=== PATIENT | male | born 1950 | race Native Hawaiian/Other Pacific Islander ===

== ENCOUNTER 2017-07-22 09:03 | Emergency (ER) | payer MEDICARE ==
[~2017-07-22] VITALS: Ht 170.2 cm; Wt 60.0 kg
[2017-07-22 09:05] VITALS: BP 138/74; PULSE 96; RESP 16; TEMP 97.9; O2SAT 97
[2017-07-22] MEDS ORDERED: SYMB160A INH (09:22)
[2017-07-22] MEDS ORDERED: METF500T PO (09:23)
[2017-07-22] MEDS ORDERED: SIMV40TA PO (09:23)
[2017-07-22] MEDS ORDERED: CREON6 PO (09:23)
--- NOTE | 2017-07-22 10:00 | RADRPT ---
EXAM DATE/TIME: 07/22/2017 09:33 [facility] COMPARISON: No previous studies available for comparison. INDICATIONS : Pain, swelling, bruising left ankle entire ankle into foot. MEDICAL HISTORY : None. SURGICAL HISTORY : None. ENCOUNTER: Initial ACUITY: 2 days PAIN SCORE: 10/10 LOCATION: Left ankle. FINDINGS: Three view exam was performed of the left ankle. The bony structures are in normal alignment. No ev idence of fracture or dislocation. The ankle mortise is intact. Soft tissue swelling most notably o verlying the lateral ankle. No radiopaque foreign bodies are seen. Bony mineralization is normal. CONCLUSION: 1. Soft tissue swelling without subcutaneous emphysema or radiopaque foreign body. 2. No acute fracture or dislocation. Denny Sierra MD on July 22, 2017 at 9:57 Board Certified Radiologist. This report was verified electronically.
--- NOTE | 2017-07-22 10:04 | PD ---
HPI Chief Complaint: Injury Time Seen by Provider: 09:15 Travel History International Travel<30 days: No Contact w/Intl Traveler<30days: No Traveled to known affect area: No History of Present Illness HPI This 67-year-old man who presents to the emergency department when he left ankle pain. He reports that they moved into a house about a month ago. He is getting used to the stairs. He states he was coming off the stairs and he thought there was the landing but there was one more stair and he fell and rolled his left ankle. This happened last night. He said pain and swelling since then. Worse today. Able to bear weight some but has pain and swelling and discomfort in the left ankle. No other complaints. Otherwise, healthy. History Past Medical History Narrative Medical Asthma Pancreatic exocrine insufficiency Hyperlipidemia Past Surgical History Surgical History: No Previous Surgery Social History Alcohol Use: No Tobacco Use: No Allergies-Medications (Allergen,Severity, Reaction): Coded Allergies: No Known Allergies (Unverified , 07/22/17) Reported Meds & Prescriptions Reported Meds & Active Scripts Active Reported Metformin (Metformin HCl) 500 Mg Tab 500 Mg PO DAILY With a meal Simvastatin 40 Mg Tab 40 Mg PO HS Creon (Amylase/Lipase/Protease) 6,000-19,000-30,000 Units Cap 1 Cap PO DAILY Symbicort Inh (Budesonide/Formoterol Fumarate) 160-4.5 Mcg/Act Aero 1 Puff INH Q12HR Review of Systems Except as stated in HPI: all other systems reviewed are Neg Physical Exam Narrative GENERAL: Well-appearing 67-year-old man, no acute distress. SKIN: Warm and dry. CARDIOVASCULAR: Warm and well perfused. RESPIRATORY: Normal rate and effort. MUSCULOSKELETAL: Focused examination of the left lower toney reveals normal gross appearance of the distal leg. There is no pain or swelling. There is no pain with calf squeeze. Examination of the ankle shows some erythema redness and some bruising, especially about the lateral malleolus. There is tenderness over the lateral malleolus and the soft tissue surrounding the lateral malleolus. There is no obvious ligamentous instability. Good pulses. Distal foot intact. NEUROLOGICAL: Awake and alert. No gross deficits. Data Data Last Documented VS Vital Signs Date Time Temp Pulse Resp B/P (MAP) Pulse Ox O2 Delivery O2 Flow Rate FiO2 07/22/17 09:05 97.9 96 16 138/74 (95) 97 Room Air Orders Orders Ankle, Complete ([id number]) (07/22/17 ) MDM Medical Decision Making Medical Screen Exam Complete: Yes Emergency Medical Condition: Yes Interpretation(s) Personally reviewed x-ray images, negative for fracture. Differential Diagnosis Strain or sprain, fracture, contusion, other Narrative Course Medical decision-making new para 67-year-old male with left ankle inversion type injury, x-ray negative, able to bear weight, recommend supportive bracing. Outpatient follow-up. Diagnosis Primary Impression: Ankle sprain Referrals: Andrea Carranza MD 1 week Additional Instructions: Weight-bear as tolerated. Use brace as needed for comfort. Follow up with Dr. Carranza for further evaluation if not completely well and week. Return to the emergency department for any new or worsening symptoms. Med/Other Pt SpecificInfo: No Change to Meds Disposition: 01 DISCHARGE HOME Condition: Stable Oswaldo Pham MD Jul 22, 2017 10:04
== END 2017-07-22 10:22 | disposition home or self-care (01) ==
LOC: NEPD 09:03
DX: S93.402A Sprain of unspecified ligament of left ankle, initial encounter (principal); W10.9XXA Fall (on) (from) unspecified stairs and steps, initial encounter; Y92.009 Unspecified place in unspecified non-institutional (private) residence as the place of occurrence of the external cause
CPT/HCPCS: 73610; 99283

== ENCOUNTER 2018-01-25 08:53 | Emergency (ER) | payer MEDICARE, OTHER ==
[~2018-01-25] VITALS: Ht 170.2 cm; Wt 65.0 kg
[~2018-01-25 08:53] MED LIST: CREON6 PO; METF500T PO; SIMV40TA PO; SYMB160A INH
[2018-01-25 09:00] VITALS: BP 129/62; PULSE 75; RESP 16; TEMP 97.6; O2SAT 97
--- NOTE | 2018-01-25 10:46 | PD ---
HPI Chief Complaint: Back/ Neck Pain or Injury Time Seen by Provider: 09:50 Travel History International Travel<30 days: No Contact w/Intl Traveler<30days: No Traveled to known affect area: No History of Present Illness HPI 67-year-old male presents emergency department with atraumatic neck pain bilateral for the past 2 days. Denies any trauma patient states he overexerted his neck. He states he thought it was just a bad muscle strain but then when it did not get better he decided to come in and be seen. Denies any weight loss , he is a recovering alcoholic, no numbness and tingling in his extremities, no loss of urine, no urinary difficulty. States the pain is bilateral, right greater than left, no radiation, associated signs and symptoms in context as above. PFSH Past Medical History Asthma: Yes Social History Alcohol Use: No Tobacco Use: No Substance Use: No Allergies-Medications (Allergen,Severity, Reaction): Coded Allergies: No Known Allergies (Unverified , 07/22/17) Reported Meds & Prescriptions Reported Meds & Active Scripts Active Flexeril (Cyclobenzaprine HCl) 10 Mg Tab 10 Mg PO TID Reported Metformin (Metformin HCl) 500 Mg Tab 500 Mg PO DAILY With a meal Simvastatin 40 Mg Tab 40 Mg PO HS Creon (Amylase/Lipase/Protease) 6,000-19,000-30,000 Units Cap 1 Cap PO DAILY Symbicort Inh (Budesonide/Formoterol Fumarate) 160-4.5 Mcg/Act Aero 1 Puff INH Q12HR Review of Systems Except as stated in HPI: all other systems reviewed are Neg Physical Exam Narrative GENERAL: Well-nourished but thin, well-developed patient. In no obvious distress. Quite pleasant. SKIN: Focused skin assessment warm/dry. HEAD: Normocephalic. EYES: No scleral icterus. No injection or drainage. NECK: Supple, trachea midline. No JVD or lymphadenopathy. CARDIOVASCULAR: Regular rate and rhythm without murmurs, gallops, or rubs. RESPIRATORY: Breath sounds equal bilaterally. No accessory muscle use. GASTROINTESTINAL: Abdomen soft, non-tender, nondistended. MUSCULOSKELETAL: No cyanosis, or edema. There is no true midline tenderness, there is some tenderness over the right trapezius, there is no tenderness over the left trapezius. Patient has 5 out of 5 strength in all 4 extremities, no numbness and tingling peer BACK: Nontender without obvious deformity. No CVA tenderness. Data Data Last Documented VS Vital Signs Date Time Temp Pulse Resp B/P (MAP) Pulse Ox O2 Delivery O2 Flow Rate FiO2 01/25/18 09:00 97.6 75 16 129/62 (84) 97 Orders Orders Spine, Cervical - Ltd (Ap&Lat) (01/25/18 ) Ed Discharge Order (01/25/18 11:42) MDM Medical Decision Making Medical Screen Exam Complete: Yes Emergency Medical Condition: Yes Differential Diagnosis Neck strain, neck sprain, neck fracture highly unlikely, Narrative Course Patient room to the emergency department, his sign symptoms highly suggestive of neck strain, I think given his age he desires basic imaging to screen for any lytic lesions. A simple AP and lateral film was obtained and did not show any lytic lesions. The patient was reassured, discussed Intermedic management return to ED criteria Diagnosis Primary Impression: Neck strain Qualified Codes: S16.1XXA - Strain of muscle, fascia and tendon at neck level , initial encounter Med/Other Pt SpecificInfo: Prescription(s) given Scripts Cyclobenzaprine (Flexeril) 10 Mg Tab 10 MG PO TID for Muscle Spasm, #20 TAB 0 Refills Prov: Major Piña MD 01/25/18 Disposition: 01 DISCHARGE HOME Condition: Stable Major Piña MD Jan 25, 2018 10:46
--- NOTE | 2018-01-25 11:21 | RADRPT ---
EXAM DATE: 01/25/2018 11:07 AM EDT AGE/SEX: 67 years / Male INDICATIONS: Pain in posterior part of neck. Pain started 4-5 days ago, with no known injury. CLINICAL DATA: This is the patient's initial encounter. Patient reports that signs and symptoms have been present for 4 - 6 days and indicates a pain score of 7/10. MEDICAL/SURGICAL HISTORY: None. None. COMPARISON: No prior [facility] exams available for comparison. FINDINGS: The vertebral bodies are in normal alignment without evidence of compression deformity. There is mild disc space narrowing with uncovertebral joint hypertrophy present at the level of C5/C6. Bone densi ty is normal for age. Soft tissues are grossly intact. CONCLUSION: Mild degenerative change seen at the level of C5/C6. Otherwise negative exam. Electronically signed by: Wendy Becerra MD 01/25/2018 11:19 AM EDT
[2018-01-25] MEDS ORDERED: CYCL10TA PO (11:42)
== END 2018-01-25 11:54 | disposition home or self-care (01) ==
LOC: NEPC 08:53
DX: S16.1XXA Strain of muscle, fascia and tendon at neck level, initial encounter (principal); M50.322 Other cervical disc degeneration at C5-C6 level; J45.909 Unspecified asthma, uncomplicated; Z79.899 Other long term (current) drug therapy; X58.XXXA Exposure to other specified factors, initial encounter
CPT/HCPCS: 72040; 99283